=== PATIENT | female | born 1940 | race Caucasian/White ===

== ENCOUNTER → 2018-07-27 | Outpatient (REF) | payer MEDICARE, BC | END | disposition home or self-care (01) | LOC: CT 10:43 | PROVIDERS: ATTEND Otolaryngology | DX: J32.3 Chronic sphenoidal sinusitis (principal); Z98.890 Other specified postprocedural states ==

== ENCOUNTER 2022-07-14 20:08 | Emergency (ER) | payer MEDICARE, BC ==
[2022-07-14] VITALS (10 sets, daily range): BP systolic 136–164; BP diastolic 62–79
[2022-07-14 20:38] LABS: BASO% 0.8 % (0-3); EOS% 0.7 % (0-8); HEMATOCRIT 34.7 % (37.0-47.0); HEMOGLOBIN 11.7 g/dl (12.0-16.0); IMMATURE GRANULOCYTES 0.2 % (0.0-5.0); LYMPH% 26.3 % (15-41); MEAN CELL VOLUME 82.4 fL CALC (80.0-100.0); MEAN CORPUSCULAR HGB 27.8 pG CALC (26.0-32.0); MEAN CORPUSCULAR HGB CONC 33.7 g/dL CAL (32.0-36.0); MONO% 10.3 % (2-13); NEUT# 5.35 thou/uL (2.00-7.15); NEUT% 61.7 % (42-76); RED BLOOD COUNT 4.21 mill/uL (4.20-5.60); RED CELL DISTRI WIDTH 12.3 % (11.5-15.5)
[2022-07-14] MEDS ORDERED: WELLBUTRIN150 M2 PO (20:41)
[2022-07-14] MEDS ORDERED: VITAMIN D2 PO (20:42)
[2022-07-14] MEDS ORDERED: LOSARTAN POTASS25 MG PO (20:43)
[2022-07-14] MEDS ORDERED: CETIRIZINE10 MG PO (20:44)
[2022-07-14] MEDS ORDERED: NORVASC5 M1 PO (20:44)
[2022-07-14] MEDS ORDERED: FLEXERIL5 M1 PO (20:45)
[2022-07-14] MEDS ORDERED: ASPIRIN81 MG PO (20:45)
[2022-07-14] MEDS ORDERED: HYDROXYZ HCL25 MG PO (20:46)
[2022-07-14] MEDS ORDERED: CLONIDINE0.1 MG PO (20:47)
[2022-07-14] MEDS ORDERED: XANAX0.5 MG PO (20:47)
[2022-07-14 20:52] LABS: ALBUMIN 4.5 g/dL (3.2-5.0); ALKALINE PHOSPHATASE 106 u/l (38-126); BILIRUBIN, TOTAL 0.3 mg/dL (0.02-1.3); BUN 21 mg/dL (8-23); BUN/CREATININE RATIO 17 (12-20 (CALC)); CHLORIDE 91 mmol/l (95-108); CREATININE 1.2 mg/dL (0.5-1.0); ETHYL ALCOHOL 0 mg/dl (0-30); GFR FOR AFR.AMER. 52 ML/MIN (>=60 (CALC)); GFR OTHER RACES 43 ML/MIN (>=60 (CALC)); POTASSIUM 4.4 mmol/l (3.5-5.1); SGOT/AST 31 u/l (9-36)
[2022-07-14 21:01] LABS: ANION GAP 14 (6-22 (CALC)); CARBON DIOXIDE 25 mmol/l (22-30); SODIUM 126 mmol/l (137-146)
[2022-07-14] MEDS ORDERED: SOD CHLORIDE1 G2 OD (22:43)
== END 2022-07-14 23:30 | disposition home or self-care (01) ==
LOC: ED 20:08
PROVIDERS: Family Medicine
DX: R55 Syncope and collapse (principal); E87.1 Hypo-osmolality and hyponatremia; Z20.822 Contact with and (suspected) exposure to COVID-19

== ENCOUNTER 2022-09-23 10:51 | Emergency (ER) | payer MEDICARE, BC ==
[~2022-09-23] VITALS: Ht 149.9 cm; Wt 63.0 kg
[2022-09-23] VITALS (18 sets, daily range): BP systolic 135–184; BP diastolic 54–142
[~2022-09-23 10:51] MED LIST: ASPIRIN81 MG PO; CETIRIZINE10 MG PO; CLONIDINE0.1 MG PO; FLEXERIL5 M1 PO; HYDROXYZ HCL25 MG PO; LOSARTAN POTASS25 MG PO; NORVASC5 M1 PO; SOD CHLORIDE1 G2 OD; VITAMIN D2 PO; WELLBUTRIN150 M2 PO; XANAX0.5 MG PO
[2022-09-23 11:38] LABS: BASO% 0.6 % (0-3); EOS% 1.8 % (0-8); HEMATOCRIT 32.5 % (37.0-47.0); HEMOGLOBIN 11.2 g/dl (12.0-16.0); IMMATURE GRANULOCYTES 0.2 % (0.0-5.0); LYMPH% 6.4 % (15-41); MEAN CELL VOLUME 81.9 fL CALC (80.0-100.0); MEAN CORPUSCULAR HGB 28.2 pG CALC (26.0-32.0); MEAN CORPUSCULAR HGB CONC 34.5 g/dL CAL (32.0-36.0); MONO% 4.8 % (2-13); NEUT# 10.82 thou/uL (2.00-7.15); NEUT% 86.2 % (42-76); RED BLOOD COUNT 3.97 mill/uL (4.20-5.60)
[2022-09-23 11:50] LABS: ALBUMIN 4.4 g/dL (3.2-5.0); ALKALINE PHOSPHATASE 109 u/l (38-126); ANION GAP 13 (6-22 (CALC)); BUN 12 mg/dL (8-23); BUN/CREATININE RATIO 12 (12-20 (CALC)); CARBON DIOXIDE 25 mmol/l (22-30); CHLORIDE 90 mmol/l (95-108); GFR FOR AFR.AMER. > 60 ML/MIN (>=60 (CALC)); GFR OTHER RACES 53 ML/MIN (>=60 (CALC)); POTASSIUM 3.8 mmol/l (3.5-5.1); SGOT/AST 36 u/l (9-36); SODIUM 124 mmol/l (137-146); TOTAL PROTEIN 6.9 g/dL (6.3-8.2)
[2022-09-23 11:52] LABS: BILIRUBIN, TOTAL 0.9 mg/dL (0.02-1.3)
[2022-09-23 13:19] LABS: URINE BILIRUBIN - DIPSTICK NEGATIVE (NEGATIVE); URINE BLOOD DIPSTICK NEGATIVE (NEGATIVE); URINE COLOR YELLOW; URINE GLUCOSE - DIPSTICK NEGATIVE (NEGATIVE); URINE KETONE NEGATIVE (NEGATIVE); URINE LEUK ESTERASE NEGATIVE (NEGATIVE); URINE PROTEIN - DIPSTICK NEGATIVE (NEG-TRACE); URINE SPECIFIC GRAVITY <=1.005; URINE UROBILINOGEN - DIPSTICK 0.2 E.U./dL (0.2)
[2022-09-23 13:25] LABS: URINE NITRITE - DIPSTICK NEGATIVE (Negative)
[2022-09-23] MEDS ORDERED: XARELTO10 MG PO (14:18)
[2022-09-23] MEDS ORDERED: TENORMIN25 M1 PO (14:19)
[2022-09-23] MEDS ORDERED: BACLOFEN10 MG PO (14:19)
[2022-09-23] MEDS ORDERED: AZELASTINE HCL0.15 % NAB (14:20)
[2022-09-23] MEDS ORDERED: ONDANSETRON ODT8 MG PO (14:21)
== END 2022-09-23 15:35 | disposition short-term general hospital (02) ==
LOC: ED 10:51
PROVIDERS: Family Medicine
DX: S72.001A Fracture of unspecified part of neck of right femur, initial encounter for closed fracture (principal); W18.30XA Fall on same level, unspecified, initial encounter; Y92.009 Unspecified place in unspecified non-institutional (private) residence as the place of occurrence of the external cause

== ENCOUNTER 2022-10-14 11:38 | Observation (INO) | payer MEDICARE, BC ==
[~2022-10-14] VITALS: Ht 149.9 cm; Wt 55.0 kg
[2022-10-14] VITALS (21 sets, daily range): BP systolic 130–159; BP diastolic 47–114
[~2022-10-14 11:38] MED LIST changes: +AZELASTINE HCL0.15 % NAB; +BACLOFEN10 MG PO; +ONDANSETRON ODT8 MG PO; +TENORMIN25 M1 PO; +XARELTO10 MG PO
[2022-10-14 12:06] LABS: BASO% 0.5 % (0-3); EOS% 0.5 % (0-8); HEMATOCRIT 31.9 % (37.0-47.0); HEMOGLOBIN 10.3 g/dl (12.0-16.0); IMMATURE GRANULOCYTES 0.3 % (0.0-5.0); LYMPH% 14.7 % (15-41); MEAN CELL VOLUME 87.2 fL CALC (80.0-100.0); MEAN CORPUSCULAR HGB 28.1 pG CALC (26.0-32.0); MEAN CORPUSCULAR HGB CONC 32.3 g/dL CAL (32.0-36.0); MONO% 7.2 % (2-13); NEUT# 4.6 thou/uL (2.00-7.15); NEUT% 76.8 % (42-76); RED BLOOD COUNT 3.66 mill/uL (4.20-5.60); RED CELL DISTRI WIDTH 13.1 % (11.5-15.5)
[2022-10-14 12:34] LABS: INTERNATIONAL NORMALIZED RATIO 1.2 RATIO (0.7-1.3); PROTHROMBIN TIME 12.1 SECONDS (9.0-12.5)
[2022-10-14 12:41] LABS: ALBUMIN 4.9 g/dL (3.2-5.0); ALKALINE PHOSPHATASE 132 u/l (38-126); BILIRUBIN, TOTAL 0.7 mg/dL (0.02-1.3); BUN 13 mg/dL (8-23); BUN/CREATININE RATIO 12 (12-20 (CALC)); CARBON DIOXIDE 27 mmol/l (22-30); CHLORIDE 99 mmol/l (95-108); GFR FOR AFR.AMER. > 60 ML/MIN (>=60 (CALC)); GFR OTHER RACES 53 ML/MIN (>=60 (CALC)); POTASSIUM 4.2 mmol/l (3.5-5.1); SGOT/AST 38 u/l (9-36); TOTAL PROTEIN 7.9 g/dL (6.3-8.2)
[2022-10-14 13:15] LABS: ANION GAP 15 (6-22 (CALC)); SODIUM 137 mmol/l (137-146)
[2022-10-14 13:34] LABS: URINE BILIRUBIN - DIPSTICK NEGATIVE (NEGATIVE); URINE BLOOD DIPSTICK NEGATIVE (NEGATIVE); URINE COLOR YELLOW; URINE GLUCOSE - DIPSTICK NEGATIVE (NEGATIVE); URINE KETONE NEGATIVE (NEGATIVE); URINE LEUK ESTERASE NEGATIVE (NEGATIVE); URINE NITRITE - DIPSTICK NEGATIVE (Negative); URINE PROTEIN - DIPSTICK NEGATIVE (NEG-TRACE); URINE UROBILINOGEN - DIPSTICK 0.2 E.U./dL (0.2)
[2022-10-14] MEDS ORDERED: ACETAMINOPHEN325 MG PO (14:58)
[2022-10-14] MEDS ORDERED: AMIODARONE HYD200 M1 (15:00)
[2022-10-14] MEDS ORDERED: XARELTO20 MG PO (18:11)
[2022-10-15] VITALS: BP 138/62
[2022-10-15 03:58] VITALS: BP 126/46
[2022-10-15 04:00] VITALS: BP 126/46
[2022-10-15 07:23] VITALS: BP 135/53
[2022-10-15 11:42] VITALS: BP 123/49
[2022-10-15 23:32] VITALS: BP 136/55
[2022-10-16 03:12] VITALS: BP 135/46
[2022-10-16 05:03] LABS: HEMATOCRIT 28.5 % (37.0-47.0); HEMOGLOBIN 9.2 g/dl (12.0-16.0); MEAN CELL VOLUME 85.8 fL CALC (80.0-100.0); MEAN CORPUSCULAR HGB 27.7 pG CALC (26.0-32.0); MEAN CORPUSCULAR HGB CONC 32.3 g/dL CAL (32.0-36.0); RED BLOOD COUNT 3.32 mill/uL (4.20-5.60); RED CELL DISTRI WIDTH 13.2 % (11.5-15.5)
[2022-10-16 05:13] LABS: CREATININE 1.4 mg/dL (0.5-1.0)
[2022-10-16 05:24] LABS: MAGNESIUM 1.9 mg/dL (1.6-2.3); POTASSIUM 3.4 mmol/l (3.5-5.1)
[2022-10-16 05:48] LABS: ALBUMIN 3.5 g/dL (3.2-5.0); BILIRUBIN, TOTAL 0.4 mg/dL (0.02-1.3); TOTAL PROTEIN 5.8 g/dL (6.3-8.2)
[2022-10-16 07:51] VITALS: BP 142/53
[2022-10-16 19:04] VITALS: BP 141/50
[2022-10-17 00:10] VITALS: BP 135/54
[2022-10-17 04:28] VITALS: BP 134/55
[2022-10-17 05:05] LABS: HEMATOCRIT 31.3 % (37.0-47.0); HEMOGLOBIN 10.3 g/dl (12.0-16.0); MEAN CELL VOLUME 85.8 fL CALC (80.0-100.0); MEAN CORPUSCULAR HGB 28.2 pG CALC (26.0-32.0); MEAN CORPUSCULAR HGB CONC 32.9 g/dL CAL (32.0-36.0); RED BLOOD COUNT 3.65 mill/uL (4.20-5.60); RED CELL DISTRI WIDTH 13.2 % (11.5-15.5)
[2022-10-17 05:21] LABS: ALBUMIN 3.9 g/dL (3.2-5.0); ALKALINE PHOSPHATASE 110 u/l (38-126); ANION GAP 12 (6-22 (CALC)); BILIRUBIN, TOTAL 0.4 mg/dL (0.02-1.3); BUN 14 mg/dL (8-23); BUN/CREATININE RATIO 15 (12-20 (CALC)); CARBON DIOXIDE 27 mmol/l (22-30); CHLORIDE 100 mmol/l (95-108); CREATININE 0.9 mg/dL (0.5-1.0); GFR FOR AFR.AMER. > 60 ML/MIN (>=60 (CALC)); GFR OTHER RACES 60 ML/MIN (>=60 (CALC)); POTASSIUM 3.9 mmol/l (3.5-5.1); SGOT/AST 27 u/l (9-36); SODIUM 134 mmol/l (137-146); TOTAL PROTEIN 6.3 g/dL (6.3-8.2)
[2022-10-17 08:03] VITALS: BP 121/40
[2022-10-17 11:07] VITALS: BP 114/48
[2022-10-17 16:17] LABS: URINE BILIRUBIN - DIPSTICK NEGATIVE (NEGATIVE); URINE BLOOD DIPSTICK LARGE (NEGATIVE); URINE CLARITY CLEAR; URINE COLOR YELLOW; URINE GLUCOSE - DIPSTICK NEGATIVE (NEGATIVE); URINE KETONE NEGATIVE (NEGATIVE); URINE LEUK ESTERASE MODERATE (Negative); URINE NITRITE - DIPSTICK NEGATIVE (Negative); URINE PH 6.5 (4.5-8.0); URINE PROTEIN - DIPSTICK NEGATIVE (NEG-TRACE); URINE UROBILINOGEN - DIPSTICK 0.2 E.U./dL (0.2)
[2022-10-17 16:49] LABS: URINE SQUAMOUS EPITHELIAL CELL FEW EPI/hpf (0-FEW)
[2022-10-17 17:17] VITALS: BP 147/45
[2022-10-17 20:21] VITALS: BP 134/31
[2022-10-18 01:02] VITALS: BP 111/43
[2022-10-18 04:16] VITALS: BP 140/43
[2022-10-18 05:10] LABS: BASO% 0.4 % (0-3); HEMOGLOBIN 10.8 g/dl (12.0-16.0); IMMATURE GRANULOCYTES 0.3 % (0.0-5.0); LYMPH% 18.2 % (15-41); MEAN CELL VOLUME 87.1 fL CALC (80.0-100.0); MEAN CORPUSCULAR HGB 28.5 pG CALC (26.0-32.0); MEAN CORPUSCULAR HGB CONC 32.7 g/dL CAL (32.0-36.0); MONO% 9.5 % (2-13); NEUT# 6.69 thou/uL (2.00-7.15); NEUT% 68.6 % (42-76); RED BLOOD COUNT 3.79 mill/uL (4.20-5.60); RED CELL DISTRI WIDTH 13.1 % (11.5-15.5)
[2022-10-18 05:33] LABS: ALBUMIN 4.4 g/dL (3.2-5.0); CREATININE 1.1 mg/dL (0.5-1.0); MAGNESIUM 2.1 mg/dL (1.6-2.3); POTASSIUM 3.5 mmol/l (3.5-5.1); TOTAL PROTEIN 7.5 g/dL (6.3-8.2)
[2022-10-18 05:39] LABS: BILIRUBIN, TOTAL 0.6 mg/dL (0.02-1.3)
[2022-10-18 07:34] VITALS: BP 126/45
[2022-10-18 11:11] VITALS: BP 129/25
[2022-10-18] MEDS ORDERED: ADLT ASA LOW81 MG PO (11:20)
[2022-10-18] MEDS ORDERED: CEFDINIR300 MG PO (11:21)
[2022-10-18] MEDS ORDERED: PANTOPRAZOLE SO40 M1 PO (11:21)
== END 2022-10-18 17:22 ==
LOC: ED 11:38 → ED-I 11:53 → ED 11:53 → ED-I 13:20 → ED 19:40 → MS2 19:41
PROVIDERS: Family Medicine; Nurse Practitioner Family; ADMIT Internal Medicine; ATTEND Internal Medicine
PROC: 0T9B70Z Drainage of Bladder with Drainage Device, Via Natural or Artificial Opening (ICD-10-PCS; principal; 2022-10-14)
DX: G93.40 Encephalopathy, unspecified (principal); R33.9 Retention of urine, unspecified; N39.0 Urinary tract infection, site not specified; E87.1 Hypo-osmolality and hyponatremia; I10 Essential (primary) hypertension; I48.91 Unspecified atrial fibrillation; M17.11 Unilateral primary osteoarthritis, right knee; F41.9 Anxiety disorder, unspecified; S72.001D Fracture of unspecified part of neck of right femur, subsequent encounter for closed fracture with routine healing; W19.XXXD Unspecified fall, subsequent encounter; Z79.01 Long term (current) use of anticoagulants
CPT/HCPCS: Q9967